=== PATIENT | female | born 1970 ===

== ENCOUNTER 2016-11-03 09:09 | Day surgery (SDC) | payer OTHER ==
[~2016-11-03] VITALS: Ht 157.5 cm; Wt 77.4 kg
[~2016-11-03 09:09] MED LIST: ACYCLOVIR200 MG PO; IMITREX100 MG PO
--- NOTE | 2016-11-03 09:25 | NUR ---
pre op teaching done and understood
[2016-11-03] MEDS ORDERED: HYCET1 ML PO (12:03)
--- NOTE | 2016-11-03 12:04 | Provider's Discharge Care Plan ---
Problem, Goal, Plan Problem List 1. S/P laparoscopic cholecystectomy Goals: Improve function, Therapeutic intervention Instructions: Follow up as directed, Take meds as directed
--- NOTE | 2016-11-03 12:04 | Provider's Discharge Care Plan ---
Problem, Goal, Plan Problem List 1. S/P laparoscopic cholecystectomy Goals: Improve function, Therapeutic intervention Instructions: Follow up as directed, Take meds as directed
--- NOTE | 2016-11-03 13:24 | NUR ---
PT TO PACU EXTUBATED AND AROUSABLE. HOB UP 30* DRESSINGS DRY, REPORT FROM ANESTHESIA AND RN/
--- NOTE | 2016-11-03 13:34 | DIAGNOSTIC IMAGING REPORT ---
PROCEDURE: XR INTRAOPERATIVE LAP SAROJ INDICATION: DYSKENESIA TECHNIQUE: Intraoperative fluoroscopy provided for Dr. Ibrahim performing an intraoperative cholangiogram following cholecystectomy. Total fluoroscopy time 11-second Cumulative dose 2.3 mGy. COMPARISON: None. FINDINGS: One intraoperative fluoroscopic spot images of the right upper quadrant of the abdomen demonstrate cannulation of the cystic duct stump and opacification of the intrahepatic and extrahepatic biliary tree. There are no filling defects. There is normal passage of contrast into the duodenum. IMPRESSION: 1. Negative intraoperative cholangiogram.
--- NOTE | 2016-11-03 13:42 | OPERATIVE REPORT ---
DATE OF SURGERY: 11/03/2016 SURGEON: Shannan Ibrahim III, MD [employer] DISPATCHER: None. PREOPERATIVE DIAGNOSIS: 1. Dyskinesia of the gallbladder POSTOPERATIVE DIAGNOSIS: 1. Dyskinesia of the gallbladder PROCEDURES PERFORMED: 1. Laparoscopic cholecystectomy 2. Fluoroscopic intraoperative cholangiogram. ANESTHESIA: General endotracheal anesthesia. ESTIMATED BLOOD LOSS: None. FLUIDS: 800 mL lactated Ringers. PATHOLOGY SPECIMENS: Gallbladder. INDICATIONS: The patient is a 46-year-old female, frequent right upper quadrant abdominal pain, 1 month duration. A recent ultrasound of her gallbladder, which was unremarkable for pathology. HIDA scan positive for dyskinesia, ejection fraction of 6%. After explaining the risks and benefits of surgery to the patient, she opted to proceed with laparoscopic cholecystectomy. SURGICAL FINDINGS: The patient was noted to have filmy adhesions of omentum to the anterior wall of the gallbladder. The intraoperative cholangiogram showed free flow of contrast material into the duodenum with no evidence of extravasation, no evidence of retained stone. Normal-appearing intrahepatic, hepatic and common bile ducts. SURGICAL TECHNIQUE: The patient was brought to the operating room and placed in the dorsal supine position where she underwent general endotracheal anesthesia by the anesthesiology department. After proper anesthesia had taken effect, the patient 's abdomen was prepped using Betadine and draped in a sterile fashion. An infraumbilical incision made, carried down through skin and subcutaneous tissue. A Veress needle was inserted through this site into the abdominal cavity and after ascertaining its appropriate position with suction irrigation, a pneumoperitoneum obtained using CO2 insufflation to approximately 14-15 mmHg pressure. Once this pressure was reached, the Veress needle was removed and replaced with a 10 mm trocar. The trocar removed leaving the sleeve behind, through which a laparoscopic video camera was introduced into the abdominal cavity. Under direct visualization, a separate 10 mm trocar was placed in the subxiphoid region, two 5 mm trocars were placed in right upper quadrant approximately 3-4 fingerbreadths below the costal margin. Each entered the abdominal cavity under direct visualization. The trocars were removed, leaving the sleeves behind, through which laparoscopic instrumentation was introduced into the abdominal cavity. The gallbladder fundus was grasped and retracted cephalad. The adhesions to the anterior abdominal wall of gallbladder were taken down using electrocautery dissection. In the process, we were able to circumferentially isolate the cystic duct. A clip was placed at the neck of the gallbladder and the cystic duct. A small incision made in the anterior surface of the cystic duct. A percutaneous cholangiogram catheter was threaded through the anterior abdominal wall into the cystic duct, clipped into position and a fluoroscopic intraoperative cholangiogram obtained with the aforementioned findings noted. Once completed, the cholangiogram catheter was retrieved from the cystic duct and the abdominal cavity. The distal cystic duct was clipped in continuity, divided. The cystic artery identified, clipped in continuity and divided. The gallbladder was taken down from its bed in a retrograde fashion using electrocautery dissection. Once completely freed from its bed, it was placed in a sterile specimen container bag and retrieved from the abdominal cavity and sent to pathology. The gallbladder bed was inspected for hemostasis. Assuring ourselves of proper hemostasis, approximately 30 mL of 0.5% Marcaine with epinephrine were placed over the right and left dome of the liver for postoperative analgesia. The pneumoperitoneum released and all trocars were removed from the abdominal cavity. All trocar sites approximated using 4-0 subdermal Polysorb and Steri- Strips. A sterile pressure occlusive dressing was placed over each site. The patient tolerated the procedure well, was extubated and transferred to the recovery room in stable condition. There were no intraoperative or anesthetic complications.
--- NOTE | 2016-11-03 14:06 | NUR ---
GOOD RESULTS FROM PAIN MEDS AND WARM BLANKETS.
--- NOTE | 2016-11-03 14:22 | NUR ---
REC'D FROM PACU; AWAKE AND ALERT; SMALL DISCOMFORT AT RT SHOULDER. WARM BLANKET APPLIES.
--- NOTE | 2016-11-03 14:56 | NUR ---
UP TO BR. STEADY ON FEET. RT ARM SLING REPOSITIONED. VOIDED LARGE AMT. OF URINE.
--- NOTE | 2016-11-03 15:59 | NUR ---
EATING AND DRINKING WELL; DC INFO GIVEN AND UNDERSTOOD. VOIDED IN BR. NAUSEA IMPROVED AFTER ZOFRAN. WHEELED OUT TO CARE OF S.O.
== END 2016-11-03 16:04 | disposition home or self-care (01) ==
LOC: OR SRH 09:09 → SCU SRH 09:12 → OR SRH 11:15
PROVIDERS: Specialist
PROC: 0FT44ZZ Resection of Gallbladder, Percutaneous Endoscopic Approach (ICD-10-PCS; principal; 2016-11-03 11:15)
PROC: BF131ZZ Fluoroscopy of Gallbladder and Bile Ducts using Low Osmolar Contrast (ICD-10-PCS; principal; 2016-11-03 11:15)
DX: K82.8 Other specified diseases of gallbladder (principal)
CPT/HCPCS: 29229; 29240; 50002; 60001; 70002; 80102; 80212; 80248; 82669; 82794; 82807; 83338; 83339; 83348; 83587; 83920; 83937; 83982; 84038; 90074; 95059